=== PATIENT | female | born 1980 | race Caucasian/White ===

== ENCOUNTER → 2016-05-23 | Day surgery (SDC) | payer OTHER ==
[~2016-05-23] MED LIST: ALBUTEROL17 GM INH; CARAFATE1 G PO; FLONASE16 GM; FLOVENT7.9 GM IN; OMEPRAZOLE40 MG PO; ZEGERID 20 MG C1 CAP PO
--- NOTE | ~2016-05-23 | OR ---
Unit #: [id number] #: [id number] Patient: MELISSA SWANSON [id number] [address] [place], [place] [address] [id number] MR#: [id number] NAME: MELISSA SWANSON. ROOM: Date of Procedure: 05/23/2016 Admission Date: 05/23/2016 Surgeon: Frantz Back M.D. : 1980 Attending Physician: Raven Landin P.A.-C. Primary Care Physician: Phoebe Maier M.D. OPERATIVE REPORT PROCEDURE PERFORMED Esophagogastroduodenoscopy with foreign body removal from esophagus. INDICATIONS FOR PROCEDURE A 36-year-old presented with acute dysphagia after eating chicken. She has history of GERD and esophagitis in the past. MEDICATIONS Monitored anesthesia. POSTOPERATIVE FINDINGS 1. Large piece of chicken stuck in distal esophagus. There was fluid filled esophagus above this level, which was suctioned out. 2. Basket was used to removing the chicken. 3. Large hiatal hernia. 4. Normal stomach, normal duodenum, and distal duodenum. PLAN Continue PPI therapy. Repeat upper endoscopy after 6 to 8 weeks of PPI therapy for evaluation. DESCRIPTION OF PROCEDURE The patient was explained of the procedure, risks, and benefits along with risks and benefits of anesthesia. She was brought to the endoscopy room. Propofol anesthesia was given. Bite block was placed. The scope was passed down the mouth into the esophagus, which was filled with fluid. Aspiration carried out. Large piece of chicken seen. Using a basket, I was able to pull it out. Gently, the scope was then pushed into the stomach up to the duodenum. Exam finished. Findings as described, gently reported out of the patient's mouth. She tolerated it well. No major complications were seen. Dictated by... Rohan Painting/leida TD: 05/24/2016 02:41 JOB #: [id number] Unit #: [id number] #: [id number] Patient: MELISSA SWANSON OPERATIVE REPORT Page 1 of 1 X Frantz Back MD PROCEDURE OPERATIVE NOTE
[2016-05-23 09:45] LABS: BASOPHIL% 0.6 % (0-2.5); EOSINOPHIL# 0.4 X10e3 (0-0.7); EOSINOPHIL% 5.5 % (0.0-7.0); HEMATOCRIT 45.1 % (35.0-45.0); HEMOGLOBIN 15.2 gm/dL (12.0-16.0); LYMPHOCYTE% 28.6 % (17.0-45.0); MEAN CELL VOLUME 90.6 FL (83-96); MEAN CORPUSCULAR HEMOGLOBIN 30.6 PG (28-34); MEAN CORPUSCULAR HGB CONC 33.8 g/dL (30-36); MEAN PLATELET VOLUME 7.8 FL (6.5-11.5); MONOCYTE# 0.4 X10e3 (0-1.0); MONOCYTE% 6.3 % (3.0-12.0); NEUTROPHIL# 4.1 X10e3 (1.5-7.1); PLATELET COUNT 260 X10e3 (140-420); RED BLOOD COUNT 4.98 X10e (3.90-5.30); RED CELL DISTRIBUTION WIDTH 12.1 % (11.0-15.5)
[2016-05-23 09:47] LABS: DIFF IND NO
[2016-05-23 10:17] LABS: BUN/CREATININE RATIO 17.14; CALCIUM SERUM 9.1 mg/dL (8.4-10.2); CREATININE SERUM 0.7 mg/dL (0.6-1.4); GLOM FILT RATE Estimated 109.9 mL/min (>60); POTASSIUM 4.1 mmol/L (3.5-5.1)
== END | disposition home or self-care (01) ==
LOC: CED 09:49 → CSUR 11:26
PROVIDERS: Physician Assistant
DX: T18.128A Food in esophagus causing other injury, initial encounter (principal); K44.9 Diaphragmatic hernia without obstruction or gangrene; K21.9 Gastro-esophageal reflux disease without esophagitis; Z88.0 Allergy status to penicillin; Z88.1 Allergy status to other antibiotic agents
CPT/HCPCS: 36415; 80048; 85025; 96374; 99284; J2250; J2405